=== PATIENT | female | born 1950 | race Caucasian/White ===

== ENCOUNTER 2019-02-03 23:30 | Inpatient (IN) ==
[2019-02-03] MEDS ORDERED: SODIUM CHLORIDE 0.9% 250 ML IV PRN (23:40)
[2019-02-04 00:17] LABS: Hematocrit (blood only) 23.3 % (37-47); Hemoglobin 6.2 g/dL (12.0-16.0); INR 1.1 (0.9-1.1); Mean Corpuscular Hgb Conc 26.6 g/dL (32-36); Mean Corpuscular Volume 64.2 fL (80-100); Mean Platelet Volume 8.9 fL (7.4-10.4); Partial Thromboplastin Ratio 0.8; Partial Thromboplastin Time 21.7 Seconds (21.0-31.0); Platelet Count 156 K/uL (130-400); Prothrombin Time 10.8 Seconds (9.0-12.0); RDW Coefficient of Variation 20.4 % (11.5-14.5); RDW Standard Deviation 48.3 fL (36.4-46.3); Red Blood Count 3.63 M/uL (4.2-5.4); White Blood Count 7.11 K/uL (4.8-10.8)
[2019-02-04 00:20] LABS: Alanine Aminotransferase 29 U/L (12-78); Albumin Level 3.6 gm/dl (3.4-5.0); Aspartate Aminotransferase 21 U/L (15-37); BUN Creatinine Ratio 13.4 (10-20); Blood Urea Nitrogen 12 mg/dl (7-18); Carbon Dioxide 26 mmol/L (21-32); Chloride 105 mmol/L (98-107); Creatinine Clr Calc Pharmacy 69.5 ml/min; Est GFR (African American) 75.2; Est GFR (Non-African American) 64.9; Glucose 196 mg/dl (70-99); Potassium 3.9 mmol/L (3.5-5.1); Sodium 137 mmol/L (136-145)
[2019-02-04 00:25] LABS: Albumin Globulin Ratio 0.9 (0.9-2); Alkaline Phosphatase 91 U/L (45-117); Bilirubin,Total 0.5 mg/dl (0.2-1); Globulin 4.2 gm/dl (2.5-4.0); Total Protein 7.8 gm/dl (6.4-8.2); Troponin I < 0.015 ng/ml (0-0.045)
[2019-02-04 00:27] LABS: Anisocytosis Present; Basophils # (auto) 0.07 K/uL (0-0.2); Eosinophils # (auto) 0.09 K/uL (0-0.5); Eosinophils % (auto) 1.3 %; Hypochromasia Present; Immature Granulocytes # (auto) 0.01 K/uL (0.00-0.02); Immature Granulocytes % (auto) 0.1 %; Lymphocytes # (auto) 2.28 K/uL (1.2-3.4); Lymphocytes % (auto) 32.1 %; Microcytosis Present; Monocytes # (auto) 0.52 K/uL (0.11-0.59); Monocytes % (auto) 7.3 %; Neutrophils # (auto) 4.14 K/uL (1.4-6.5); Neutrophils % (auto) 58.2 %; Ovalocytes 1+; Tear Drop Cells 1+
[2019-02-04] MEDS ORDERED: ALBUTEROL HFA 8 GM INHALER INH PRN ×2 (03:33)
[2019-02-04] MEDS ORDERED: ACETAMINOPHEN 325 MG TAB PO PRN (03:33)
[2019-02-04] MEDS ORDERED: NITROGLYCERIN SL 0.4 MG/TAB TAB SL PRN (03:33)
[2019-02-04] MEDS ORDERED: SODIUM CHLORIDE 0.9% 250 ML IV PRN (03:33)
[2019-02-04] MEDS ORDERED: ONDANSETRON INJ 2 MG/ML 2 ML VIAL IV PRN (03:33)
[2019-02-04] MEDS ORDERED: SODIUM CHLORIDE 0.9% 1000ML 1,000 ML IV SCH (03:33)
[2019-02-04] MEDS ORDERED: FUROSEMIDE 40 MG TAB PO PRN (03:33)
[2019-02-04] MEDS ORDERED: CARBOHYDRATES FOR HYPOGLYCEMIA PO PRN (04:15)
[2019-02-04] MEDS ORDERED: GLUCOSE 10 TABS/TUBE PO PRN (04:15)
[2019-02-04] MEDS ORDERED: GLUCAGON FOR INJ 1 MG VIAL SQ PRN (04:15)
[2019-02-04] MEDS ORDERED: GLUCOSE 40% GEL 15 GM TUBE PO PRN (04:15)
[2019-02-04] MEDS ORDERED: DEXTROSE 50% 50 ML SYRINGE IV PRN (04:15)
--- NOTE | 2019-02-04 04:21 | Emergency Department Note ---
Entered by Nyla Toth acting as a scribe for Jennifer Julian DO History of Present Illness General Chief complaint: Abnormal Labs/Diagnostic Testing Stated complaint: ABNORMAL LABS Time Seen by Provider: 02/03/19 23:37 Source: patient History of Present Illness Onset (ago): hour(s) 1 Location: head (Abnormal blood work) Pain Consistency: + other (Episode) Quality: + other (Cramping) Associated symptoms: + shortness of breath and + other (Positive fatigue, lower extremity swelling, cramping. Negative vaginal bleeding, dark colored stools.) Treatments prior to arrival: none The patient is a 68 year old female who presents to the Emergency Department complaining of an episode of abnormal lab work starting 1 hour ago. The patient reports that she had blood work done earlier today that showed that her hemoglobin was 6.2. She states that she has been short of breath and fatigued. She explains that her left leg is swollen and that her legs have been cramping up at night. She notes that she was called by her PCPs office at 2230 today and was told to come to the ED because of her low hemoglobin. She states that she t ook no medications [employer] for her symptoms. 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 She states that she had a stress test and CT of her chest without contrast which were both negative. She explains that she has an ultrasound that ruled out DVT. She notes that she then had a CT of her chest with contrast that showed cirrhosis of her liver, emphysema and a small nodule that is nothing. She adds that she is a previous smoker. The patient denies vaginal bleeding and dark colored stools. Home Medications Home Medications Medication Instructions Recorded Confirmed Type albuterol sulfate [Ventolin HFA] 2 puff INHALATION Q4H PRN 02/04/19 02/04/19 History ascorbate calcium-bioflavonoid 1 tab PO DAILY 02/04/19 02/04/19 History [Ofe-C with Bioflavonoids] aspirin [Aspir-81] 81 mg PO DAILY 02/04/19 02/04/19 History cholecalciferol (vitamin D3) 400 unit PO DAILY 02/04/19 02/04/19 History [Vitamin D3] furosemide [Lasix] 40 mg PO BID PRN 02/04/19 02/04/19 History glimepiride 4 mg PO QAM 02/04/19 02/04/19 History lisinopril 20 mg PO DAILY 02/04/19 02/04/19 History metformin 1,000 mg PO BID 02/04/19 02/04/19 History omeprazole 20 mg PO DAILY 02/04/19 02/04/19 History Allergies Allergy/AdvReac Type Severity Reaction Status Date / Time adhesive Allergy Intermediate SKIN Verified 02/04/19 00:50 BLISTERS, PEELS OFF Past Med/Surg History Medical History Cirrhosis of liver Emphysema of lung Family History Other Family history non-contributory Social History Preferred Language: Kenyan Communication Ability: Effective Surgical Territory Manager Required: No Beliefs That Will Affect Care: None Current Living Situation: Alone Other Information That Helps Us Care for You: No Feels Safe at Home: Yes Safety Concerns: Feels Safe At This Time Smoking Status: Former smoker Tobacco Type: cigarettes Do You Dip or Chew Tobacco: No Second Hand Exposure: No Tobacco Cessation Education Requested by Patient: No Hx Alcohol Use: No Hx Substance Use: No Review of Systems See HPI for pertinent positives & negatives. and A total of 10 systems reviewed and were otherwise negative Physical Exam Vital Signs Vital Signs - 24 hr 02/03/19 23:31 02/04/19 00:05 02/04/19 00:07 Temperature 36.7 C Temperature Source Oral Sepsis Recent Fever Within 48 Hours No Sepsis Action Taken by Nursing No Action Required Pulse Rate 91 H Pulse Rate [Apical] 85 Pulse Rhythm Pulse Rhythm [Apical] Regular Pulse Strength Pulse Strength [Apical] Normal Respiratory Rate 18 18 Respiratory Effort / Characteristics Non-Labored Non-Labored Spontaneous Respiratory Depth Normal Normal Blood Pressure 156/75 H Blood Pressure [Right Arm] 140/76 Blood Pressure Mean 102 Blood Pressure Mean [Right Arm] 97 Blood Pressure Position Blood Pressure Position [Right Arm] Sitting Pulse Oximetry 97 97 97 Oxygen Delivery Method Room Air Room Air Nasal Cannula 02/04/19 00:55 02/04/19 01:48 02/04/19 02:02 Temperature 36.5 C 36.3 C L Temperature Source Oral Oral Sepsis Recent Fever Within 48 Hours Sepsis Action Taken by Nursing Pulse Rate 83 85 Pulse Rate [Apical] 82 Pulse Rhythm Regular Regular Pulse Rhythm [Apical] Regular Pulse Strength Normal Normal Pulse Strength [Apical] Normal Respiratory Rate 18 18 Respiratory Effort / Characteristics Respiratory Depth Normal Blood Pressure 145/76 H 143/64 H Blood Pressure [Right Arm] 124/67 Blood Pressure Mean 99 90 Blood Pressure Mean [Right Arm] 86 Blood Pressure Position Lying Blood Pressure Position [Right Arm] Pulse Oximetry 96 95 96 Oxygen Delivery Method Room Air 02/04/19 02:04 02/04/19 02:05 02/04/19 02:20 Temperature 36.3 C L 36.7 C 36.6 C Temperature Source Oral Oral Oral Sepsis Recent Fever Within 48 Hours Sepsis Action Taken by Nursing Pulse Rate 83 85 Pulse Rate [Apical] 85 Pulse Rhythm Regular Regular Pulse Rhythm [Apical] Regular Pulse Strength Normal Normal Pulse Strength [Apical] Normal Respiratory Rate 18 18 20 Respiratory Effort / Characteristics Non-Labored Spontaneous Respiratory Depth Normal Blood Pressure 120/83 155/79 H Blood Pressure [Right Arm] 143/64 H Blood Pressure Mean 95 104 Blood Pressure Mean [Right Arm] 90 Blood Pressure Position Lying Lying Blood Pressure Position [Right Arm] Pulse Oximetry 96 95 97 Oxygen Delivery Method Room Air HEENT: Head - normocephalic and atraumatic Pupils are equal, round, and reactive to light. Extraocular eye muscles are intact, and sclera are anicteric. Nose - moist nasal mucosa without discharge. Mouth - moist buccal mucosa. Oropharynx is nonerythematous and there is no tonsillar exudate or edema noted. Neck: Supple; no JVD, nuchal rigidity, cervical lymphadenopathy, or auscultated bruits. Heart: Regular rate and rhythm. There is a normal S1 and S2 with no murmurs, clicks, or gallops appreciated. Lungs: Clear to auscultation bilaterally with no wheezes, rales, or rhonchi. Abdomen: Soft, completely nontender, nondistended, with good bowel sounds. There are no palpable pulsatile masses or hepatosplenomegaly. There is no guarding, rigidity, or rebound noted. Extremities: No evidence of cyanosis or clubbing. There are easily palpable peripheral pulses. 1+ edema in left lower leg. Right leg is normal. Skin: warm and dry with good turgor and no rashes. Course 2341: The patient was evaluated in room B2, and a complete history and physical examination were performed. Previous electronic medical records were reviewed. An IV lock was initiated and labs were drawn as above. She was typed and crossed for 2 units of packed red blood cells. 0040: I reevaluated the patient at this time and consented her for a blood transfusion. 0143: Sodium Chloride 150 ml @ 15 mls/hr IV. 0153: I discussed the patients case with Dr. Irlanda Rashid hospitalist. He will evaluate the patient for further management. Consultations Consultation #1: I discussed the patients case with Dr. Irlanda Rashid hospitalafshan. He will evaluate the patient for further management. Time: 01:53 Medical Decision Making Differential Diagnosis Differential diagnosis includes anemia, lab error, CHF, cirrhosis and GI bleed amongst others. Medical Records Attestation: I reviewed the patient's medical records. Home Medications Current Medication List: was personally reviewed by me Laboratory Data Attestation: I reviewed the patient's lab results. Result diagrams: 02/03/19 23:51 02/03/19 23:51 Lab Results 02/03/19 02/03/19 02/03/19 Range/Units 23:51 23:51 23:51 WBC 7.11 (4.8-10.8) K/uL RBC 3.63 L (4.2-5.4) M/uL Hgb 6.2 L* (12.0-16.0) g/dL Hct 23.3 L (37-47) % MCV 64.2 L (80-100) fL MCH 17.1 L (25-34) pg MCHC 26.6 L (32-36) g/dL RDW Std Deviation 48.3 H (36.4-46.3) fL RDW Coeff of Porfirio 20.4 H (11.5-14.5) % Plt Count 156 (130-400) K/uL MPV 8.9 (7.4-10.4) fL Immature Gran % (Auto) 0.1 % Neut % (Auto) 58.2 % Lymph % (Auto) 32.1 % [place] % (Auto) 7.3 % Eos % (Auto) 1.3 % Baso % (Auto) 1.0 % Immature Gran # (Auto) 0.01 (0.00-0.02) K/uL Neut # (Auto) 4.14 (1.4-6.5) K/uL Lymph # (Auto) 2.28 (1.2-3.4) K/uL [place] # (Auto) 0.52 (0.11-0.59) K/uL Eos # (Auto) 0.09 (0-0.5) K/uL Baso # (Auto) 0.07 (0-0.2) K/uL Hypochromasia Present Anisocytosis Present Microcytosis Present Tear Drop Cells 1+ Ovalocytes 1+ PT 10.8 (9.0-12.0) Seconds INR 1.1 (0.9-1.1) APTT 21.7 (21.0-31.0) Seconds PTT Ratio 0.8 Sodium 137 (136-145) mmol/L Potassium 3.9 (3.5-5.1) mmol/L Chloride 105 (98-107) mmol/L Carbon Dioxide 26 (21-32) mmol/L Anion Gap 6.0 (3-11) BUN 12 (7-18) mg/dl Creatinine 0.92 (0.6-1.2) mg/dl Est Cr Clr Drug Dosing 69.5 ml/min Est GFR ( Amer) 75.2 Est GFR (Non-Af Amer) 64.9 BUN/Creatinine Ratio 13.4 (10-20) Glucose 196 H (70-99) mg/dl Calcium 9.0 (8.5-10.1) mg/dl Total Bilirubin 0.5 (0.2-1) mg/dl AST 21 (15-37) U/L ALT 29 (12-78) U/L Alkaline Phosphatase 91 (45-117) U/L Troponin I < 0.015 (0-0.045) ng/ml Total Protein 7.8 (6.4-8.2) gm/dl Albumin 3.6 (3.4-5.0) gm/dl Globulin 4.2 H (2.5-4.0) gm/dl Albumin/Globulin Ratio 0.9 (0.9-2) Blood Type Blood Type Recheck Antibody Screen Crossmatch 02/03/19 02/04/19 Range/Units 23:51 00:43 WBC (4.8-10.8) K/uL RBC (4.2-5.4) M/uL Hgb (12.0-16.0) g/dL Hct (37-47) % MCV (80-100) fL MCH (25-34) pg MCHC (32-36) g/dL RDW Std Deviation (36.4-46.3) fL RDW Coeff of Porfirio (11.5-14.5) % Plt Count (130-400) K/uL MPV (7.4-10.4) fL Immature Gran % (Auto) % Neut % (Auto) % Lymph % (Auto) % [place] % (Auto) % Eos % (Auto) % Baso % (Auto) % Immature Gran # (Auto) (0.00-0.02) K/uL Neut # (Auto) (1.4-6.5) K/uL Lymph # (Auto) (1.2-3.4) K/uL [place] # (Auto) (0.11-0.59) K/uL Eos # (Auto) (0-0.5) K/uL Baso # (Auto) (0-0.2) K/uL Hypochromasia Anisocytosis Microcytosis Tear Drop Cells Ovalocytes PT (9.0-12.0) Seconds INR (0.9-1.1) APTT (21.0-31.0) Seconds PTT Ratio Sodium (136-145) mmol/L Potassium (3.5-5.1) mmol/L Chloride (98-107) mmol/L Carbon Dioxide (21-32) mmol/L Anion Gap (3-11) BUN (7-18) mg/dl Creatinine (0.6-1.2) mg/dl Est Cr Clr Drug Dosing ml/min Est GFR ( Amer) Est GFR (Non-Af Amer) BUN/Creatinine Ratio (10-20) Glucose (70-99) mg/dl Calcium (8.5-10.1) mg/dl Total Bilirubin (0.2-1) mg/dl AST (15-37) U/L ALT (12-78) U/L Alkaline Phosphatase (45-117) U/L Troponin I (0-0.045) ng/ml Total Protein (6.4-8.2) gm/dl Albumin (3.4-5.0) gm/dl Globulin (2.5-4.0) gm/dl Albumin/Globulin Ratio (0.9-2) Blood Type O Positive Blood Type Recheck O Positive Antibody Screen NEGATIVE Crossmatch See Detail Imaging Data Attestation: I personally reviewed and interpreted this imaging study as follows: My Impression: XR Chest 1V portable: No obvious pulmonary infiltrate or consolidation. ECG Data Attestation: I personally reviewed and interpreted this ECG as follows: Indication: toxicologic Rate (beats per minute): 86 Rhythm: normal sinus Findings: + T-wave inversion (Lead 3 and aVF) Comparison ECG Date: from (03/02/1997) Change: the following changes noted (TWI is new) Blood Pressure Blood Pressure Findings: Elevated blood pressure Blood Pressure Disposition: further management by hospitalist WIN Lemons The patient is a 68 year old female who presents to the ED with an episode of abnormal lab work starting 1 hour ago. Differential diagnosis includes anemia, lab error, CHF, cirrhosis and GI bleed amongst others. The patient has been experiencing shortness of breath over the past couple of weeks. She had an extensive work-up through her PCP and professor of music to include pulmonary function tests, CT scan of the chest, and dobutamine stress echo. Other than some emphysema, the testing was negative. Her PCP ordered routine blood work and found that she was anemic. She was contacted [facility] to come to the emergency department for a hemoglobin of 6.2. On physical exam, the patient had stable vital signs and appeared comfortable. The hemoglobin is 6.2 was confirmed and she was typed and crossed for 2 units of packed red blood cells. I did consent the patient to transfusion. The transfusion was initiated here in the emergency department. A chest x-ray had been performed and was unremar kable. I discussed the case with the [facility] Hospitalist and they will evaluate for further management Impression & Plan Anemia, Acute electrocardiogram changes, Hyperglycemia, Shortness of breath Critical Care Time Critical Care Time: Yes Total Critical Care Time: 40 I have personally spent 40 minutes of critical care time in the direct management of this patient. This includes bedside care, interpretation of diagnostic studies, and testing, discussion with consultants, patient, and family members, and other required patient management activities. This 40 minutes is in excess of all separately billable procedures. Discharge Plan Visit Data *Final* Discharge Date/Time: 02/04/19 03:27 Chief Complaint: Abnormal Labs/Diagnostic Testing Stated Complaint: ABNORMAL LABS ED Provider: Jennifer Julian Discharge Problem: Anemia, Acute electrocardiogram changes, Hyperglycemia, Shortness of breath Patient Disposition: Admitted As Inpatient Discharge Instructions Interventions: ED Discharge Assessment Last Done: 02/04/19 03:28 ED AMA/LWBS Discharge Assessment Last Done: 02/04/19 03:27 Discharge Problem: Anemia Qualifiers: Anemia type: unspecified type Qualified Code(s): D64.9 - Anemia, unspecified The scribe's documentation has been prepared under my direction and personally reviewed by me in its entirety. I confirm that the note above accurately reflects all work, treatment, procedures, and medical decision making performed by me.
[2019-02-04] MEDS ORDERED: Nursing to Pharmacy Communication ONE (04:42)
--- NOTE | 2019-02-04 05:21 | History and Physical Report ---
DATE OF ADMISSION: 02/04/2019 CHIEF COMPLAINT: Abnormal outpatient labs with hemoglobin of 6.2. HISTORY OF PRESENT ILLNESS: This is a 68-year-old female with past medical history significant for type 2 diabetes, hyperlipidemia, COPD, mild hypertension, GERD with esophagitis, spinal stenosis, statin intolerance, presents with outpatient labs showing anemia of hemoglobin 6.2. The patient has shortness of breath for several months now. She was recently followed up and worked up for it with dobutamine stress test which was unremarkable. CTA of the chest was done, there was no PE but showed liver cirrhosis. Lower extremity Doppler was negative for any DVT and she also has pulmonary function tests that showed possible mild COPD and outpatient labs were also done which showed hemoglobin of 6.2 and she was advised to come to the ER. In the ER, her labs showed again a hemoglobin of 6.2. The patient denies any obvious bleeding. No black stools, no blood in the stools, no hematuria. No nausea, no vomiting, no abdominal pain, no chest pain, no headaches, no difficulty swallowing. Appetite is okay. She ambulates okay. She lives alone. Otherwise, she was doing okay. Currently resting comfortably and hemodynamically stable. ALLERGIES: ADHESIVES. PAST MEDICAL HISTORY: As mentioned above. PAST SURGICAL HISTORY: Breast lesion excision, colonoscopy, cardiac catheterization, hysterectomy, laparoscopic appendectomy, ligation of the oviducts. MEDICATIONS: The patient is on albuterol 2 puffs every 4 hours p.r.n., omeprazole 20 mg p.o. daily, metformin 1000 mg p.o. b.i.d., glimepiride 4 mg p.o. b.i.d., Bioflavonoid products 1 tablet daily, lisinopril 20 mg p.o. daily, Lasix 40 mg p.o. b.i.d. p.r.n., vitamin D2 400 units p.o. daily, MVI p.o. daily, aspirin 81 mg p.o. daily. FAMILY HISTORY: Significant for father had lung cancer, mother of MD and diabetic complications, brother had lung cancer, sister had lung cancer, another sister has colon cancer, granddaughter has prolonged QT and brain damage. SOCIAL HISTORY: Single, lives alone. Former smoker, quit in 2008, prior to that smoked 1 pack a day for 36 years. No alcohol use, no drug use. REVIEW OF SYMPTOMS: As per HPI. Rest of review of systems negative. PHYSICAL EXAMINATION: GENERAL: The patient is of moderate build, in moderate to acute distress. VITAL SIGNS: Temperature 36.6, pulse 85, respiratory rate 20, blood pressure 155/70, oxygen 97% room air. HEENT: No pallor, no icterus. Pupils equal, round, reactive to light. NECK: No JVD, no neck masses, no carotid bruit. CARDIOVASCULAR: S1, S2 heard, regular rate and rhythm, no murmur, no gallop. RESPIRATORY SYSTEM: Normal AP diameter. No accessory muscle use. No wheezing, no crackles. ABDOMEN: Soft, bowel sounds present, nontender. No distention. CENTRAL NERVOUS SYSTEM: Cranial nerves II-XII grossly intact. Nonfocal. EXTREMITIES: No edema, no erythema. LABORATORY DATA: WBC 7.1, hemoglobin 6.2, hematocrit 23.3, platelets 156. PT 10.8, INR 1.1, APTT 21.7. Sodium 137, potassium 3.9, chloride 105, bicarbonate 26, BUN 12, creatinine 0.9, serum glucose 196, calcium 9, total bilirubin 0.5, AST 71, ALT 29, alkaline phosphatase 91. Troponin I less than 0.015. IMAGING DATA: Chest x-ray, no acute findings seen. EKG: Normal sinus rhythm, rate of 86, some T-wave inversions in inferior leads. ASSESSMENT AND PLAN: This is a 68-year-old female who presents with anemia with hemoglobin 6.2 1. Shortness of breath going on for several months. Outpatient workup showed a CT of the chest shows no PE but showed some liver cirrhosis. Lower extremity Doppler negative. Dobutamine stress test was negative, but PFTs showed mild chronic obstructive pulmonary disease. Quit smoking about 10 years ago. Labs showed hemoglobin 6.2 possibly causing her shortness of breath. No obvious findings of bleeding. Cirrhosis possibly causing the anemia. We will keep her n.p.o. Transfuse 2 units of PRBCs, H and H q. 6 hours. Check stool for Hemoccult. Consult GI in a.m. for possible EGD and colonoscopy. She says she is due for colonoscopy, never did EGDs in the past. We will hold the aspirin. 2. Diabetes. Hold metformin and glimepiride. Placed on Lantus daily and insulin sliding scale. 3. Hypertension. Continue her lisinopril with holding parameters. 4. Gastroesophageal reflux disease. We will place on IV Pepcid. 5. Mild chronic obstructive pulmonary disease. Albuterol p.r.n. 6. Deep venous thrombosis prophylaxis, sequential compression devices for now. 7. Disposition: Admit to med/surg tele. Level 1 full code. MTDD
[2019-02-04] MEDS ORDERED: FUROSEMIDE 20 MG in SYRINGE 0 ML IV ONE (06:00)
[2019-02-04] MEDS: INSULIN ASPART 100 UNITS/ML 3 ML PEN SC SCH ×2 (06:09→12:04)
[2019-02-04] MEDS ORDERED: INSULIN ASPART 100 UNITS/ML 3 ML PEN SC SCH (07:30)
--- NOTE | 2019-02-04 07:35 | XRay Report ---
XR chest 1V portable HISTORY: Dyspnea COMPARISON: None. FINDINGS: The cardiac silhouette is mildly enlarged. The lungs are clear. No pleural effusions. No pn eumothorax. No evidence for pulmonary edema. IMPRESSION: Mild cardiomegaly. Electronically signed by: Ever Hinton M.D. 02/04/2019 7:34 AM
--- NOTE | 2019-02-04 08:36 | Gastrointestinal Consultation ---
Date of Consultation February 04, 2019 Assessment & Plan (1) Anemia: Cause of the anemia is likely multifactorial. Pts with cirrhosis often have a baseline of 10 or even lower. She is also a risk for GI bleeding from complications of cirrhosis as well as from possible esophagitis, ulcer disease, gastritis, duodenitis or H Pylori. Also considered his colon cancer in light of her history of tubovillous adenoma. Plan 1. EGD today by Dr. Willa Sanchez. 2. Appreciate primary hospitalists management of fluids. Agree with H2 renae drip in the because injectable PPIs are not available. 3. Keep NPO. 4. Further recommendations to follow EGD. 5. She is already scheduled for outpatient colonoscopy with Dr. Baum on February 25. Present on Admission?: Yes (2) Cirrhosis of liver: 1. Brief discussion of the pathophysiology of cirrhosis causing increased bleeding, fluid retention, confusion and GI bleed. I explained that our goal will be to prevent complications of cirrhosis. 2. Careful weight and BS control recommended. 2. Will need OP GI f/u for management of cirrhosis with goal to prevent complications of cirrhosis. Our office will call her to arrange outpatient follow-up, likely with myself or Dr. Baum. Present on Admission?: Yes Supervising Physician Co-Signing Physician Notes Patient presented to the emergency room for evaluation of shortness of breath and anemia. She was found to have a hemoglobin of approximately 6. Imaging study does seem to indicate that she may have underlying cirrhosis. The patient denies having dark sticky stool hematemesis coffee-ground emesis or passage of blood. Her: History is notable for a tubulovillous adenoma removed by Dr. Baum several years ago. Physical examination No obvious distress No scleral icterus Abdomen soft Impression: [place] with recently identified anemia. We will plan for upper endosc opy today. If negative the patient can proceed with outpatient colonoscopy as previously scheduled with Dr. Baum. History of Present Illness Reason for Consultation: Anemia, Hb 6.2 Requesting Physician: Janel Lopez Attending Physician: Janel Lopez MD History of Present Illness Ms. Leslie Abdi is a 68 yr old female pt of Dr. Swan with a hx of DM-2, Hyperlipidemia, COPD, HTN, GERD, spinal stenosis was being worked up for chronic SOB of 2 months duration, worsening. During that workup, cirrhosis was seen on a chest CTA (not yet established with GI). Yesterday, OP labs showed Hb 6.2 and the pt was directed to present to [facility] for admission. On arrival, Hb 6.2 (most recent prior that I am able to find was 13, drawn in 2014), Hct 23, platelets 156; BUN normal at 12 and she denies any gross GI bleeding, specifically no black or loose stools. Her most recent colonoscopy was in [address] Baum with the finding of the 12 mm colon polyp path positive for tubovillous adenoma. She has never undergone upper endoscopy, in fact she does not recall ever being told that she had a diagnosis of reflux and currently denies any epigastric or retrosternal burning or pressure or other symptoms of reflux. She also denies any dysphagia or odynophagia. Allergies Allergy/AdvReac Type Severity Reaction Status Date / Time adhesive Allergy Intermediate SKIN Verified 02/04/19 00:50 BLISTERS, PEELS OFF Home Medications Home Medications Medication Instructions Recorded Confirmed Type albuterol sulfate [Ventolin HFA] 2 puff INHALATION Q4H PRN 02/04/19 02/04/19 History ascorbate calcium-bioflavonoid 1 tab PO DAILY 02/04/19 02/04/19 History [Ofe-C with Bioflavonoids] aspirin [Aspir-81] 81 mg PO DAILY 02/04/19 02/04/19 History cholecalciferol (vitamin D3) 400 unit PO DAILY 02/04/19 02/04/19 History [Vitamin D3] furosemide [Lasix] 40 mg PO BID PRN 02/04/19 02/04/19 History glimepiride 4 mg PO QAM 02/04/19 02/04/19 History lisinopril 20 mg PO DAILY 02/04/19 02/04/19 History metformin 1,000 mg PO BID 02/04/19 02/04/19 History omeprazole 20 mg PO DAILY 02/04/19 02/04/19 History Patient History Medical History Cirrhosis of liver Emphysema of lung COPD (chronic obstructive pulmonary disease) Diabetes GERD (gastroesophageal reflux disease) Hypertension Spinal stenosis Surgical History H/O colonoscopy History of appendectomy History of hysterectomy History of left heart catheterization Family History Other Family history non-contributory Social History Preferred Language: Tanzanian Communication Ability: Effective Optometrist President/Practice Owner Required: No Beliefs That Will Affect Care: None Current Living Situation: Alone Other Information That Helps Us Care for You: No Feels Safe at Home: Yes Safety Concerns: Feels Safe At This Time Smoking Status: Former smoker Tobacco Type: cigarettes Do You Dip or Chew Tobacco: No Second Hand Exposure: No Tobacco Cessation Education Requested by Patient: No Hx Alcohol Use: No Hx Substance Use: No Review of Systems Review of Systems: ROS: Gen: Denies weakness, fevers, weight loss Eyes: No eye redness, or pain, no recent vision changes Resp: + chronic SOB, of 2 months duration; no cough Cardio: + palpitations, no chest pain/pressure or arm pain/pressure GI: No abdominal pain, no nausea/vomiting; no melena or hematochezia : Denies pain on urination Skin: No jaundice, itching or new rashes Physical Exam Constitutional: WD/WN, vitals as above Eyes: PERRL, conjunctivae normal, anicteric sclerae ENMT: external ear and nose normal, oropharynx normal Neck: trachea midline, no thyromegaly Respiratory: normal respiratory effort, lungs clear to auscultation Cardiovascular: RRR, no murmur, no edema Gastrointestinal (Abdomen): normal bowel sounds, soft, nontender, no hepatosplenomegaly No evidence of ascites Musculoskeletal: no cyanosis or clubbing, extremities motor strength 5/5 Skin: no rashes, warm and dry No spider angiomas Neurologic: PERRL, EOMI, accommodation nl, no face palsy, no dysarthria No asterixis Psychiatric: A+Ox3, euthymic affect Lymphatic: no cervical or axillary lymphadenopathy Results & Data Vital Signs (Past 12 Hours) Vital Signs Temp Pulse Pulse Resp BP BP Pulse Ox 02/04/19 07:46 36.6 C 78 16 130/76 97 02/04/19 07:11 36.6 C 73 16 131/78 93 02/04/19 06:05 36.4 C L 81 18 143/80 H 93 02/04/19 05:08 36.4 C L 77 18 129/75 96 02/04/19 04:32 36.3 C L 83 18 119/62 96 02/04/19 04:17 36.7 C 84 18 128/76 93 02/04/19 04:00 81 02/04/19 03:54 36.7 C 81 20 119/70 96 02/04/19 03:49 36.7 C 81 20 119/70 96 02/04/19 03:28 36.6 C 85 18 130/81 96 02/04/19 03:27 36.6 C 85 18 130/81 97 02/04/19 02:50 36.7 C 83 18 130/81 98 02/04/19 02:42 80 20 125/72 96 02/04/19 02:20 36.6 C 85 20 155/79 H 97 02/04/19 02:05 36.7 C 83 18 120/83 95 02/04/19 02:04 36.3 C L 85 18 143/64 H 96 02/04/19 02:02 36.3 C L 85 18 143/64 H 96 02/04/19 01:48 36.5 C 83 18 145/76 H 95 02/04/19 00:55 82 124/67 96 02/04/19 00:07 97 02/04/19 00:05 85 18 140/76 97 02/03/19 23:31 36.7 C 91 H 18 156/75 H 97 Laboratory Results Hb 6.2, Hct 23, platelets 156, na 137, K 3.8, BUN 12, Cr 0.92, T Bili 0.5, AST 21, ALT 29, Alk Phos 91, Albumin 3.6. Diagnostic Findings CXR mild cardiomegaly. (1) Anemia Anemia type: unspecified type Qualified Code(s): D64.9 - Anemia, unspecified
[2019-02-04 08:39] LABS: Hematocrit (blood only) 28.9 % (37-47); Hemoglobin 8.3 g/dL (12.0-16.0)
[2019-02-04] MEDS ORDERED: FAMOTIDINE 20 MG in SYRINGE 3 ML IV SCH (09:00)
[2019-02-04] MEDS ORDERED: INSULIN GLARGINE SOLOSTAR 100 UNITS/ML 3 ML PEN SC SCH (09:00)
[2019-02-04] MEDS ORDERED: LISINOPRIL 20 MG TAB PO SCH (09:00)
[2019-02-04] MEDS ORDERED: CHOLECALCIFEROL (VITAMIN D) 400 UNITS TABLET PO SCH (09:00)
[2019-02-04 11:31] LABS: Estimated Average Glucose 177 mg/dl; Hemoglobin A1C 7.8 % (4.5-5.6)
--- NOTE | 2019-02-04 14:12 | Anesthesiology Consultation ---
Date of Service February 04, 2019 Assessment & Plan (1) Encounter for pre-operative examination: Chart Review Chart Review: Acceptable Risk for Surgery and Patient NOT seen in Pre Admission Testing Consults Requested none History Surgery Operation Date: 02/04/19 08:30 Proposed Procedures p Esophagogastroduodenoscopy Dr Daniel Sanchez Height/Weight Height: 5 ft 6 in Weight: 93.7 kg Allergies Allergy/AdvReac Type Severity Reaction Status Date / Time adhesive Allergy Intermediate SKIN Verified 02/04/19 00:50 BLISTERS, PEELS OFF Medications Home Medications Medication Instructions Recorded Confirmed Last Taken albuterol sulfate [Ventolin HFA] 2 puff INHALATION Q4H PRN 02/04/19 02/04/19 Unknown ascorbate calcium-bioflavonoid 1 tab PO DAILY 02/04/19 02/04/19 02/03/19 [Ofe-C with Bioflavonoids] aspirin [Aspir-81] 81 mg PO DAILY 02/04/19 02/04/19 02/03/19 cholecalciferol (vitamin D3) 400 unit PO DAILY 02/04/19 02/04/19 02/03/19 [Vitamin D3] furosemide [Lasix] 40 mg PO BID PRN 02/04/19 02/04/19 Unknown glimepiride 4 mg PO QAM 02/04/19 02/04/19 02/03/19 lisinopril 20 mg PO DAILY 02/04/19 02/04/19 02/03/19 metformin 1,000 mg PO BID 02/04/19 02/04/19 02/03/19 omeprazole 20 mg PO DAILY 02/04/19 02/04/19 02/03/19 Active Medications Generic Name Dose Route Start Last Admin Trade Name Freq PRN Reason Stop Dose Admin Sodium Chloride 1,000 mls @ 100 mls/hr 02/04/19 03:33 02/04/19 13:54 Nss 1000ml IV 03/06/19 03:32 0 mls/hr .Q10H JENNY Infusion Famotidine 20 mg/ Syringe 5 mls @ 2.5 mls/min 02/04/19 09:00 02/04/19 08:06 IV 03/06/19 08:59 2.5 mls/min BID JENNY Administration Insulin Aspart 0 units 02/04/19 06:00 02/04/19 12:04 Novolog Flexpen SC 03/06/19 05:59 2 units Q6 JENNY Administration Insulin Glargine 5 units 02/04/19 09:00 02/04/19 08:06 Lantus Solostar Pen SC 03/06/19 08:59 Not Given DAILY JENNY Lisinopril 20 mg 02/04/19 09:00 02/04/19 08:06 Zestril PO 03/06/19 08:59 20 mg DAILY JENNY Administration Vitamin D 400 units 02/04/19 09:00 02/04/19 08:06 Vitamin D3 PO 03/06/19 08:59 400 units DAILY JENNY Administration Past Medical History Medical History Cirrhosis of liver Emphysema of lung COPD (chronic obstructive pulmonary disease) Diabetes GERD (gastroesophageal reflux disease) Hypertension Spinal stenosis Exercise / Class Metabolic Activity II 4-5 Yardwork/Stairs/Walk up hill Past Family History Family History Other Family history non-contributory Past Surgical History Surgical History H/O colonoscopy History of appendectomy History of hysterectomy History of left heart catheterization Social History Smoking Status: Former smoker tobacco type: cigarettes Do You Dip or Chew Tobacco: No Hx Alcohol Use: No Hx Substance Use: No Physical Exam Vital Signs Last Vital Signs Temp 36.6 C 02/04/19 12:10 Pulse 77 02/04/19 12:10 Resp 16 02/04/19 12:10 BP 119/69 02/04/19 12:10 Pulse Ox 95 02/04/19 12:10 Testing Laboratory Results 02/04/19 08:19 02/03/19 23:51 PT 10.8 Seconds (9.0-12.0) 02/03/19 23:51 INR 1.1 (0.9-1.1) 02/03/19 23:51 APTT 21.7 Seconds (21.0-31.0) 02/03/19 23:51 Hemoglobin A1c 7.8 % (4.5-5.6) H 02/04/19 08:19 Blood Type O Positive 02/03/19 23:51 Antibody Screen NEGATIVE 02/03/19 23:51 02/04/19 02/04/19 12:02 06:05 POC Glucose 196 H 184 H Electrocardiogram Date: 02/03/19 Findings: + NSR @ (86) Normal sinus rhythm Normal ECG When compared with ECG of 02-MAR-1997 07:05, Vent. rate has increased BY 29 BPM T wave inversion now evident in Inferior leads
[2019-02-04] MEDS ORDERED: LIDOCAINE HCL 2% 2 ML VIAL/AMP(20MG/ML) INFIL ONE (14:48)
[2019-02-04] MEDS ORDERED: PROPOFOL IV EMULSION 10 MG/ML 20 ML VIAL IV ONE (14:48)
--- NOTE | 2019-02-04 15:00 | GI REPORT ---
Patient Name: Chhaya Abdi Procedure Date: 02/04/2019 2:36 PM Date of : 1950 Admit Type: Inpatient Age: 68 Gender: Female Attending MD: Willa Sanchez DO Procedure: Upper GI endoscopy Providers: Willa Sanchez DO Referring MD: Mari Kumar Indications: Unexplained iron deficiency anemia Medicines: Monitored Anesthesia Care Complications: No immediate complications. Estimated blood loss: Minimal. Estimated Blood Loss: Estimated blood loss was minimal. Procedure: Pre-Anesthesia Assessment: - Prior to the procedure, a History and Physical was performed, and patient medications, allergies and sensitivities were reviewed. The patient's tolerance of previous anesthesia was reviewed. - The risks and benefits of the procedure and the sedation options and risks were discussed with the patient. All questions were answered and informed consent was obtained. - Patient identification and proposed procedure were verified prior to the procedure by the physician, the nurse and the data center manager. The procedure was verified in the procedure room. - Pre-procedure physical examination revealed no contraindications to sedation. - ASA Grade Assessment: III - A patient with severe systemic disease. - After reviewing the risks and benefits, the patient was deemed in satisfactory condition to undergo the procedure. - The anesthesia plan was to use monitored anesthesia care (MAC). - Immediately prior to administration of medications, the patient was re-assessed for adequacy to receive sedatives. - Sedation was administered by an anesthesia professional. The sedation level attained was moderate. - The heart rate, respiratory rate, oxygen saturations, blood pressure, adequacy of pulmonary ventilation, and response to care were monitored throughout the procedure. - The physical status of the patient was re-assessed after the procedure. After obtaining informed consent, the endoscope was passed under direct vision. Throughout the procedure, the patient's blood pressure, pulse, and oxygen saturations were monitored continuously. The Scope was introduced through the mouth, and advanced to the third part of duodenum. The upper GI endoscopy was accomplished without difficulty. The patient tolerated the procedure well. The upper GI endoscopy was accomplished without difficulty. The patient tolerated the procedure well. Findings: Four columns of non-bleeding grade I varices were found in the lower third of the esophagus, 32 to 38 cm from the incisors. They were 4 mm in largest diameter. No stigmata of recent bleeding were evident and no red renato signs were present. The entire examined stomach was normal. The examined duodenum was normal. Biopsies were taken with a cold forceps for histology. Impression: - Non-bleeding grade I esophageal varices. - Normal examined duodenum. - Normal stomach. - No specimens collected. Recommendation: - Return patient to [facility] for [facility] care. - Perform a colonoscopy as previously scheduled. - consider further evaluation with a UA. Willa Sanchez D.O. Willa Sanchez, 02/04/2019 3:00:02 PM This report has been signed electronically. Note Initiated On: 02/04/2019 2:36 PM Number of Addenda: 0 I attest to the content of the Intraoperative Record and orders documented therein, exceptions below {[id number]}
--- NOTE | 2019-02-04 15:38 | Anesthesiology Progress Note ---
Date of Service February 04, 2019 Anesthesia Post Procedure Vital Signs Vital Signs: Temp Pulse Pulse Pulse Resp BP BP 02/04/19 15:18 78 18 143/67 H 02/04/19 15:03 76 18 135/70 02/04/19 14:47 36.6 C 80 16 126/69 02/04/19 14:14 36.8 C 76 18 137/77 02/04/19 12:10 36.6 C 77 16 119/69 02/04/19 08:11 81 02/04/19 07:46 36.6 C 78 16 130/76 02/04/19 07:11 36.6 C 73 16 131/78 02/04/19 06:05 36.4 C L 81 18 143/80 H 02/04/19 05:08 36.4 C L 77 18 129/75 02/04/19 04:32 36.3 C L 83 18 119/62 02/04/19 04:17 36.7 C 84 18 128/76 02/04/19 04:00 81 02/04/19 03:54 36.7 C 81 20 119/70 02/04/19 03:49 36.7 C 81 20 119/70 02/04/19 03:28 36.6 C 85 18 130/81 02/04/19 03:27 36.6 C 85 18 130/81 02/04/19 02:50 36.7 C 83 18 130/81 02/04/19 02:42 80 20 125/72 02/04/19 02:20 36.6 C 85 20 155/79 H 02/04/19 02:05 36.7 C 83 18 120/83 02/04/19 02:04 36.3 C L 85 18 143/64 H 02/04/19 02:02 36.3 C L 85 18 143/64 H 02/04/19 01:48 36.5 C 83 18 145/76 H 02/04/19 00:55 82 124/67 02/04/19 00:07 02/04/19 00:05 85 18 140/76 02/03/19 23:31 36.7 C 91 H 18 156/75 H Pulse Ox 02/04/19 15:18 95 02/04/19 15:03 95 02/04/19 14:47 93 02/04/19 14:14 96 02/04/19 12:10 95 02/04/19 08:11 02/04/19 07:46 97 02/04/19 07:11 93 02/04/19 06:05 93 02/04/19 05:08 96 02/04/19 04:32 96 02/04/19 04:17 93 02/04/19 04:00 02/04/19 03:54 96 02/04/19 03:49 96 02/04/19 03:28 96 02/04/19 03:27 97 02/04/19 02:50 98 02/04/19 02:42 96 02/04/19 02:20 97 02/04/19 02:05 95 02/04/19 02:04 96 02/04/19 02:02 96 02/04/19 01:48 95 02/04/19 00:55 96 02/04/19 00:07 97 02/04/19 00:05 97 02/03/19 23:31 97 Transfer of Care Handoff Completed per policy Notes Mental Status: alert / awake / arousable and participated in evaluation Patient Amnestic to Procedure: Yes Nausea / Vomiting: adequately controlled Pain: adequately controlled Airway Patency, RR, SpO2: stable & adequate BP & HR: stable & adequate Hydration State: stable & adequate Anesthetic Complications: no major complications apparent and Pt Satisfied with anesthetic care
--- NOTE | 2019-02-04 16:12 | Hospitalist Progress Note ---
Date of Service February 04, 2019 Assessment & Plan (1) Anemia: Resented with symptomatic anemia, increased fatigue, weakness shortness of breath dyspnea on exertion Extensive outpatient work-up including cardiac stress test (negative), CT chest negative for PE lower extremity Doppler negative for DVT Outpatient lab work showed severe anemia hemoglobin 6 Status post 2 units of PRBC transfusion Improved to 8.3 with markedly improvement of symptoms Not sure of the etiology, no evidence of GI bleed-possible multifactorial: Anemia of chronic disease, chronic liver disease/cirrhosis of liver Status post EGD today: : Shows 4 columns of nonbleeding grade 1 varices, and lower third of esophagus No stigmata of recent bleeding Entire examined stomach was normal The examined duodenum was normal Per GI, patient is stable to be discharged home already on chronic PPI Patient is asked to avoid antiplatelets, avoid NSAIDs Outpatient follow-up with GI Outpatient colonoscopy already scheduled in the next 3 weeks (2) Shortness of breath: Due to the above, symptomatic anemia Redness of breath/dyspnea on exertion, dizziness spells resolved after PRBC transfusion/correction of anemia (3) Cirrhosis of liver: Incidental finding during CT of chest Appreciate input from GI EGD shows grade 1 esophageal varices without stigmata of acute bleeding Patient is instructed to low-salt diet Avoid antiplatelets, NSAIDs Will need outpatient close follow-up and further work-up for chronic liver disease Disposition: Stable to be discharged home today Subjective Returned from EGD, Ordered diet, tolerating well, no complaint of abdominal pain, no nausea Feels much better after blood transfusion No dyspnea on exertion, no shortness of breath Not had any dark bowel movement Remains hemodynamically stable Anemia corrected after 2 units of PRBC transfusion Stable to be discharged home with outpatient follow-up with family physician, lab work check(CBC to assess anemia) and GI follow-up Physical Exam Physical Exam: GENERAL: No sign of distress, HEENT: Sclera nonicteric, pink-purple bilateral equal reactive to light extraocular muscle intact Normal oral mucosa, neck: No JVD, no thyromegaly, trachea midline Lungs: Clear to auscultate, no wheeze or rales Cardiovascular: Regular S1 and S2, no murmur or gallop, no JVD, no lower extremity edema Abdomen: Soft, nontender, bowel sounds active, no hepatosplenomegaly Extremities: No rash or deformity, normal joint, Neuro: No focal neurological deficit, no dysarthria, no facial droop Psych: Alert awake oriented x3: Euthymic Skin: No rash LYMPH NODES: No cervical lymphadenopathy Results & Data Vital Signs (Past 12 Hours) Vital Signs Temp Pulse Pulse Pulse Resp BP BP 02/04/19 15:18 78 18 143/67 H 02/04/19 15:03 76 18 135/70 02/04/19 14:47 36.6 C 80 16 126/69 02/04/19 14:14 36.8 C 76 18 137/77 02/04/19 12:10 36.6 C 77 16 119/69 02/04/19 08:11 81 02/04/19 07:46 36.6 C 78 16 130/76 02/04/19 07:11 36.6 C 73 16 131/78 02/04/19 06:05 36.4 C L 81 18 143/80 H 02/04/19 05:08 36.4 C L 77 18 129/75 02/04/19 04:32 36.3 C L 83 18 119/62 02/04/19 04:17 36.7 C 84 18 128/76 Pulse Ox 02/04/19 15:18 95 02/04/19 15:03 95 02/04/19 14:47 93 02/04/19 14:14 96 02/04/19 12:10 95 02/04/19 08:11 02/04/19 07:46 97 02/04/19 07:11 93 02/04/19 06:05 93 02/04/19 05:08 96 02/04/19 04:32 96 02/04/19 04:17 93 (1) Anemia Anemia type: unspecified type Qualified Code(s): D64.9 - Anemia, unspecified
--- NOTE | 2019-02-04 17:46 | Discharge Summary ---
Date of Service February 04, 2019 Admission Exam Per Admitting Provider DICTATED BY: Terrence Fournier MD DATE OF ADMISSION: 02/04/2019 CHIEF COMPLAINT: Abnormal outpatient labs with hemoglobin of 6.2. HISTORY OF PRESENT ILLNESS: This is a 68-year-old female with past medical history significant for type 2 diabetes, hyperlipidemia, COPD, mild hypertension, GERD with esophagitis, spinal stenosis, statin intolerance, presents with outpatient labs showing anemia of hemoglobin 6.2. The patient has shortness of breath for several months now. She was recently followed up and worked up for it with dobutamine stress test which was unremarkable. CTA of the chest was done, there was no PE but showed liver cirrhosis. Lower extremity Doppler was negative for any DVT and she also has pulmonary function tests that showed possible mild COPD and outpatient labs were also done which showed hemoglobin of 6.2 and she was advised to come to the ER. In the ER, her labs showed again a hemoglobin of 6.2. The patient denies any obvious bleeding. No black stools, no blood in the stools, no hematuria. No nausea, no vomiting, no abdominal pain, no chest pain, no headaches, no difficulty swallowing. Appetite is okay. She ambulates okay. She lives alone. Otherwise, she was doing okay. Currently resting comfortably and hemodynamically stable. Principal Diagnosis Anemia/cirrhosis of liver Discharge Exam Constitutional WD/WN, vitals as above + obese Eyes PERRL, conjunctivae normal, anicteric sclerae ENMT external ear and nose normal, oropharynx normal Mouth: + edentulous and + macroglossia Mallampati Class: II Neck trachea midline, no thyromegaly normal visual inspection Respiratory normal respiratory effort, lungs clear to auscultation normal respiratory effort and + cough Auscultation: lungs clear to auscultation bilaterally Cardiovascular RRR, no murmur, no edema Rate/Rhythm: regular rate and regular rhythm Gastrointestinal (Abdomen) normal bowel sounds, soft, nontender, no hepatosplenomegaly Musculoskeletal no cyanosis or clubbing, extremities motor strength 5/5 Spine: normal cervical ROM and no pain with cervical ROM Skin no rashes, warm and dry Neurologic PERRL, EOMI, accommodation nl, no face palsy, no dysarthria moves all extremities Psychiatric A+Ox3, euthymic affect Orientation: alert and oriented x 3 Lymphatic no cervical or axillary lymphadenopathy Discharge Data Allergies Allergy/AdvReac Type Severity Reaction Status Date / Time adhesive Allergy Intermediate SKIN Verified 02/04/19 00:50 BLISTERS, PEELS OFF Consultations 02/04/19 01:26 ED Decision to Admit Stat 02/04/19 03:33 Consult Case Management - Discharge Planning Routine 02/04/19 08:00 Consult Gastroenterology Routine Procedures Performed Operation Date: 02/04/19 08:30 Actual Procedures p EGD Biopsy Cytology - [facility] Course (1) Anemia: Resented with symptomatic anemia, increased fatigue, weakness shortness of breath dyspnea on exertion Extensive outpatient work-up including cardiac stress test (negative), CT chest negative for PE lower extremity Doppler negative for DVT Outpatient lab work showed severe anemia hemoglobin 6 Status post 2 units of PRBC transfusion Improved to 8.3 with markedly improvement of symptoms Not sure of the etiology, no evidence of GI bleed-possible multifactorial: Anemia of chronic disease, chronic liver disease/cirrhosis of liver Status post EGD today: : Shows 4 columns of nonbleeding grade 1 varices, and lower third of esophagus No stigmata of recent bleeding Entire examined stomach was normal The examined duodenum was normal Per GI, patient is stable to be discharged home already on chronic PPI Patient is asked to avoid antiplatelets, avoid NSAIDs Outpatient follow-up with GI Outpatient colonoscopy already scheduled in the next 3 weeks (2) Shortness of breath: Due to the above, symptomatic anemia Redness of breath/dyspnea on exertion, dizziness spells resolved after PRBC transfusion/correction of anemia (3) Cirrhosis of liver: Incidental finding during CT of chest Appreciate input from GI EGD shows grade 1 esophageal varices without stigmata of acute bleeding Patient is instructed to low-salt diet Avoid antiplatelets, NSAIDs Will need outpatient close follow-up and further work-up for chronic liver disease Disposition: Stable to be discharged home today Total Time Total Time Spent Total Time Spent (In Minutes): Approximately 40 minutes Total Time Includes: Examination of the Patient, Discharge Planning and Medication Reconciliation Discharge Plan Discharge Items Patient Disposition: Home - Self-Care Reason For Visit: ABNORMAL LABS Discharge Diagnosis: Cirrhosis of liver/anemia Discharge Goals: Decrease discomfort Activity: Resume your previous activity Non-emergency contact: Primary Care Provider Call non-emergency contact if: you have any medication questions Follow-up/Referrals: Donald uNr MD [Primary Care Provider] - 02/08/19 12:25 pm Diet: Carb Consistent or DM2 and Low Sodium (2gm) Other Ambulatory Orders: Complete Blood Count no Diff (Routine) Timeframe: [id number] Location: Determined by Patient Ordered By: Janel Parrish Provider Instructions: Do not take aspirin, Advil, Motrin, ibuprofen, naproxen [facility] follow-up in 4 to 6 weeks office will call with appointment outpatient colonoscopy as previously scheduled with Dr. Baum on February Low-salt diet Prescriptions: Continued furosemide [Lasix] 40 mg Tablet 40 mg PO BID PRN (Reason: Fluid Retention) RF: 0 lisinopril 20 mg Tablet 20 mg PO DAILY RF: 0 metformin 1,000 mg Tablet 1,000 mg PO BID RF: 0 glimepiride 4 mg Tablet 4 mg PO QAM RF: 0 albuterol sulfate [Ventolin HFA] 90 mcg/actuation Hfa Aerosol Inhaler 2 puff INHALATION Q4H PRN (Reason: Shortness Of Breath Or Wheezing) RF: 0 cholecalciferol (vitamin D3) [Vitamin D3] 400 unit Capsule 400 unit PO DAILY RF: 0 omeprazole 20 mg Tablet,Delayed Release (Dr/Ec) 20 mg PO DAILY RF: 0 Ofe-C with Bioflavonoids 1,000-200 mg Tablet 1 tab PO DAILY RF: 0 Discontinued aspirin [Aspir-81] 81 mg Tablet,Delayed Release (Dr/Ec) 81 mg PO DAILY RF: 0 Stand-Alone Forms: [facility]Other Patient Handouts: Tips Using Less Salt, Diet Low Salt Dc Discharge Orders: Discharge Order (Routine); Ordered 02/04/19 Ordered By: Janel Lopez Admission Data Admit Date/Time: 02/04/19 02:29 Attending Provider: Janel Lopez Admit Provider: Terrence Fournier Primary Care Provider: Donald Nur Other Providers: Terrence Fournier ; Willa Sanchez Service: Telemetry Medical Other Interventions: Discharge Summary Assessment (RN) Last Done: 02/04/19 17:22
== END 2019-02-04 18:40 | disposition home or self-care (01) | DRG 812 ==
LOC: ED 23:30 → 2N 02-04 02:29